=== PATIENT | male | born 1975 | race African-American/Black ===

== ENCOUNTER 2018-10-09 22:31 | Observation (INO) | payer BC, OTHER ==
[2018-10-09] MEDS ORDERED: ASPIRIN 81 MG CHEWABLE TABLET ONE (23:04)
[2018-10-09] MEDS ORDERED: NA CHLORIDE 0.9% 1,000 ML ONE (23:04)
[2018-10-09 23:20] LABS: Protime INR 1.03
[2018-10-09 23:28] LABS: Absolute Lymphocytes (CBC) 2.5 K/uL (0.7-4.9); Absolute Monocytes 0.3 K/uL (0.1-1.3); Absolute Neutrophil 3.1 K/uL (1.8-8.0); Basophils % 0.8 % (0-1.3); Eosinophils % 2.1 % (0-4.4); Hematocrit 39.2 % (39.6-49.0); Lymphocytes % 41.5 % (15.3-44.8); MPV 8.7 fL (7.6-11.3); Monocytes % 5.7 % (3.3-12.3); RBC Red Blood Cell Count 4.12 M/uL (4.33-5.43)
--- NOTE | 2018-10-09 23:29 | ER ---
Nurse's Notes [facility] Name: Valeriano Ríos Age: 43 yrs Sex: Male : 1975 Arrival Date: 10/09/2018 Time: 22:32 Bed 4 Private MD: Alejandro Turner Diagnosis: Chest pain, unspecified-hx cad, mi and stent;Essential (primary) hypertension;Hypokalemia Presentation: 10/09 22:45 Presenting complaint: Patient states: I was walking around [place] and started having tl2 crushing chest pain. Does not radiate. Pt reports having history of a heart attack in 2011. Pt denies nausea/vomiting or shortness of breath. Pt states the pain seems to be getting better but it is still there. Transition of care: patient was not received from another setting of care. Onset of symptoms was October 09, 2018 at 22:20. Risk Assessment: Do you want to hurt yourself or someone else? Patient reports no desire to harm self or others. Initial Sepsis Screen: Does the patient meet any 2 criteria? No. Patient's initial sepsis screen is negative. Does the patient have a suspected source of infection? No. Patient's initial sepsis screen is negative. Care prior to arrival: None. 22:45 Method Of Arrival: Ambulatory tl2 22:45 Acuity: BENEDICT 3 tl2 Triage Assessment: 22:48 General: Appears in no apparent distress. uncomfortable, Behavior is calm, cooperative, tl2 appropriate for age. Pain: Complains of pain in anterior aspect of left upper chest and mid-sternal area Pain does not radiate. Pain currently is 7 out of 10 on a pain scale. Quality of pain is described as crushing. Neuro: Level of Consciousness is awake, alert, obeys commands, Oriented to person, place, time, situation. Cardiovascular: Rhythm is sinus rhythm Chest pain is described as diffuse, quality is crushing, is located in anterior chest wall began 30 minutes prior to arrival episodes are continuous. Respiratory: Airway is patent Respiratory effort is even, unlabored, Respiratory pattern is regular, symmetrical, Denies shortness of breath. GI: Patient currently denies nausea, vomiting. Derm: Skin is pink, warm \T\ dry. Historical: - Allergies: 22:48 Lisinopril; tl2 - Home Meds: 22:48 Plavix 75 mg Oral tab 1 tab once daily [Active]; Lipitor Oral [Active]; tl2 losartan-hydrochlorothiazide oral oral [Active]; aspirin 81 mg Oral chew 1 tab once daily [Active]; - PMHx: 22:48 Myocardial infarction; tl2 - PSHx: 22:48 Heart stents; tl2 - Immunization history:: Adult Immunizations up to date. - Social history:: Smoking status: Patient/guardian denies using tobacco. - Ebola Screening: : No symptoms or risks identified at this time. - Family history:: not pertinent. Screenin:50 Abuse screen: Denies threats or abuse. Nutritional screening: No deficits noted. tl2 Tuberculosis screening: No symptoms or risk factors identified. Fall Risk None identified. Assessment: 22:50 General: see triage assessment. tl2 22:52 Pain: Pain began 30 min ago. tl2 10/10 00:22 Reassessment: Patient appears in no apparent distress at this time. Patient and/or tl2 family updated on plan of care and expected duration. Pain level reassessed. Patient is alert, oriented x 3, equal unlabored respirations, skin warm/dry/pink. Vital Signs: 02 22:48 BP 164 / 97; Pulse 71; Resp 18; Pulse Ox 100% on R/A; Weight 79.38 kg; Height 5 ft. 9 tl2 in. (175.26 cm); Pain 7/10; 10/10 00:21 BP 136 / 95; Pulse 72; Resp 18; Pulse Ox 100% on R/A; tl2 02 22:48 Body Mass Index 25.84 (79.38 kg, 175.26 cm) tl2 Vitals: 02 22:50 Cardiac Rhythm Assessment Sinus rhythm. tl2 ED Course: 22:32 Patient arrived in ED. am2 22:32 Alejandro Turner MD is Private Physician. am2 22:46 Triage completed. tl2 22:47 Prudencio Concepcion MD is Attending Physician. lucia 22:48 Arm band placed on right wrist. tl2 22:50 Patient has correct armband on for positive identification. Placed in gown. Bed in low tl2 position. Call light in reach. Side rails up X 1. hall monitor on. Pulse ox on. NIBP on. 22:50 Inserted saline lock: 20 gauge in right antecubital area, using aseptic technique. tl2 Blood collected. placed by CARTER Gunderson. Patient maintains SpO2 saturation greater than 95% on room air. 23:03 XRAY Chest (1 view) In Process Unspecified. EDNH 23:27 Susana Gonzales MD is Hospitalizing Provider. [facility] 10/10 00:20 Cathleen Menard RN is Primary Nurse. tl2 01:16 No provider procedures requiring assistance completed. Patient admitted, IV remains in tl1 place. Administered Medications: 10/09 23:00 Drug: Aspirin 162 mg Route: PO; tl2 10/10 00:19 Follow up: Response: No adverse reaction tl2 10/09 23:01 Drug: NS 0.9% 1000 ml Route: IV; Rate: 125 ml/hr; Site: left antecubital; tl2 10/10 01:01 Follow up: IV Status: Infusion continued upon admission tl1 10/09 23:36 Drug: Lovenox 80 mg Route: Sub-Q; Site: abdomen; tl1 10/10 00:19 Follow up: Response: No adverse reaction tl2 10/09 23:37 Drug: Pepcid 20 mg Route: IVP; Infused Over: 2 mins; Site: right antecubital; tl1 10/10 00:20 Follow up: Response: No adverse reaction tl2 00:19 Drug: Potassium Effervescent Tablet 50 mEq Route: PO; tl2 01:01 Follow up: Response: No adverse reaction; No change in condition tl1 01:01 Drug: PlaVIX 75 mg Route: PO; tl1 01:17 Follow up: Response: No adverse reaction; No change in condition tl1 Outcome: 10/09 23:29 Decision to Hospitalize by Provider. [facility] 10/10 01:16 Admitted to Tele accompanied by nurse, via wheelchair, with chart. tl1 Condition: stable Instructed on the need for admit. 01:18 Patient left the ED. tl1 Signatures: Dispatcher [employer] EDMS Prudencio Concepcion MD MD cha Lasagna, Tonya RN RN tl1 Cathleen Menard RN RN tl2 Yuridia Ross
--- NOTE | 2018-10-09 23:30 | EDPHYS ---
Physician Documentation [facility] Name: Valeriano Ríos Age: 43 yrs Sex: Male : 1975 Arrival Date: 10/09/2018 Time: 22:32 Bed 4 Private MD: Alejandro Turner ED Physician Prudencio Concepcion HPI: 10/09 23:24 This 43 yrs old Black Male presents to ER via Ambulatory with complaints of Chest Pain lucia > 30 y/o. 23:24 The patient or guardian reports chest pain that is located primarily in the substernal lucia area, anterior chest wall. Onset: just prior to arrival. The pain does not radiate. Associated signs and symptoms: The patient has no apparent associated signs or symptoms. The chest pain is described as a heaviness, a pressure. Duration: The patient or guardian reports a single episode, that is still ongoing. Modifying factors: The symptoms are alleviated by nothing. the symptoms are aggravated by nothing. Severity of pain: At its worst the pain was moderate in the emergency department the pain has resolved and did so just prior to arrival. Historical: - Allergies: 22:48 Lisinopril; tl2 - Home Meds: 22:48 Plavix 75 mg Oral tab 1 tab once daily [Active]; Lipitor Oral [Active]; tl2 losartan-hydrochlorothiazide oral oral [Active]; aspirin 81 mg Oral chew 1 tab once daily [Active]; - PMHx: 22:48 Myocardial infarction; tl2 - PSHx: 22:48 Heart stents; tl2 - Immunization history:: Adult Immunizations up to date. - Social history:: Smoking status: Patient/guardian denies using tobacco. - Ebola Screening: : No symptoms or risks identified at this time. - Family history:: not pertinent. ROS: 23:24 Constitutional: Negative for fever, chills, and weight loss, Eyes: Negative for injury, lucia pain, redness, and discharge, ENT: Negative for injury, pain, and discharge, Neck: Negative for injury, pain, and swelling, Respiratory: Negative for shortness of breath, cough, wheezing, and pleuritic chest pain, Abdomen/GI: Negative for abdominal pain, nausea, vomiting, diarrhea, and constipation, Back: Negative for injury and pain, : Negative for injury, bleeding, discharge, and swelling, MS/Extremity: Negative for injury and deformity, Skin: Negative for injury, rash, and discoloration, Neuro: Negative for headache, weakness, numbness, tingling, and seizure, Psych: Negative for depression, anxiety, suicide ideation, homicidal ideation, and hallucinations, Allergy/Immunology: Negative for hives, rash, and allergies, Endocrine: Negative for neck swelling, polydipsia, polyuria, polyphagia, and marked weight changes, Hematologic/Lymphatic: Negative for swollen nodes, abnormal bleeding, and unusual bruising. 23:24 Cardiovascular: Positive for chest pain, of the chest. Exam: 23:24 Constitutional: This is a well developed, well nourished patient who is awake, alert, lucia and in no acute distress. Head/Face: Normocephalic, atraumatic. Eyes: Pupils equal round and reactive to light, extra-ocular motions intact. Lids and lashes normal. Conjunctiva and sclera are non-icteric and not injected. Cornea within normal limits. Periorbital areas with no swelling, redness, or edema. ENT: Nares patent. No nasal discharge, no septal abnormalities noted. Tympanic membranes are normal and external auditory canals are clear. Oropharynx with no redness, swelling, or masses, exudates, or evidence of obstruction, uvula midline. Mucous membranes moist. Neck: Trachea midline, no thyromegaly or masses palpated, and no cervical lymphadenopathy. Supple, full range of motion without nuchal rigidity, or vertebral point tenderness. No Meningismus. Chest/axilla: Normal chest wall appearance and motion. Nontender with no deformity. No lesions are appreciated. Cardiovascular: Regular rate and rhythm with a normal S1 and S2. No gallops, murmurs, or rubs. Normal PMI, no JVD. No pulse deficits. Respiratory: Lungs have equal breath sounds bilaterally, clear to auscultation and percussion. No rales, rhonchi or wheezes noted. No increased work of breathing, no retractions or nasal flaring. Abdomen/GI: Soft, non-tender, with normal bowel sounds. No distension or tympany. No guarding or rebound. No evidence of tenderness throughout. Back: No spinal tenderness. No costovertebral tenderness. Full range of motion. Male : Normal genitalia with no discharge or lesions. Skin: Warm, dry with normal turgor. Normal color with no rashes, no lesions, and no evidence of cellulitis. MS/ Extremity: Pulses equal, no cyanosis. Neurovascular intact. Full, normal range of motion. Neuro: Awake and alert, GCS 15, oriented to person, place, time, and situation. Cranial nerves II-XII grossly intact. Motor strength 5/5 in all extremities. Sensory grossly intact. Cerebellar exam normal. Normal gait. Psych: Awake, alert, with orientation to person, place and time. Behavior, mood, and affect are within normal limits. 23:24 Musculoskeletal/extremity: Extremities: all appear grossly normal, with no appreciated pain with palpation, grossly normal except: ROM: intact in all extremities, full active range of motion, full passive range of motion, Circulation is intact in all extremities. Compartment Syndrome exam of affected extremity: is normal. DVT Exam: No signs of deep vein thrombosis. no pain, no swelling, no tenderness, negative Homans' sign noted on exam, no appreciated bluish discoloration, no erythema, no increased warmth. Vital Signs: 22:48 BP 164 / 97; Pulse 71; Resp 18; Pulse Ox 100% on R/A; Weight 79.38 kg; Height 5 ft. 9 tl2 in. (175.26 cm); Pain 7/10; 10/10 00:21 BP 136 / 95; Pulse 72; Resp 18; Pulse Ox 100% on R/A; tl2 10/09 22:48 Body Mass Index 25.84 (79.38 kg, 175.26 cm) tl2 MDM: 10/09 22:47 Patient medically screened. [facility] 23:29 Data reviewed: vital signs, nurses notes, EMS record, lab test result(s), EKG, [facility] radiologic studies, plain films. 10/09 22:50 Order name: Basic Metabolic Panel; Complete Time: 00:16 [facility] 10/09 22:50 Order name: CBC with Diff; Complete Time: 00:16 [facility] 10/09 22:50 Order name: LFT's; Complete Time: 00:16 [facility] 10/09 22:50 Order name: Magnesium; Complete Time: 00:16 [facility] 10/09 22:50 Order name: NT PRO-BNP; Complete Time: 00:16 [facility] 10/09 22:50 Order name: PT-INR; Complete Time: 00:16 [facility] 10/09 22:50 Order name: Troponin (emerg Dept Use Only); Complete Time: 00:16 [facility] 10/09 22:50 Order name: XRAY Chest (1 view) [facility] 10/09 22:50 Order name: Lipase; Complete Time: 00:16 [facility] 10/09 22:50 Order name: Urine Culture [facility] 10/09 22:50 Order name: EKG; Complete Time: 22:51 [facility] 10/09 22:50 Order name: Cardiac monitoring; Complete Time: 22:53 [facility] 10/09 22:50 Order name: EKG - Nurse/Tech; Complete Time: 22:53 [facility] 10/09 22:50 Order name: IV Saline Lock; Complete Time: 22:53 [facility] 10/09 22:50 Order name: Labs collected and sent; Complete Time: 22:53 [facility] 10/09 22:50 Order name: O2 Per Protocol; Complete Time: 22:53 [facility] 10/09 22:50 Order name: O2 Sat Monitoring; Complete Time: 22:53 [facility] 10/09 22:50 Order name: Oxygen; Complete Time: 22:54 [facility] 10/10 00:17 Order name: PO challenge: juice; Complete Time: 01:01 [facility] Administered Medications: 23:00 Drug: Aspirin 162 mg Route: PO; tl2 10/10 00:19 Follow up: Response: No adverse reaction tl2 10/09 23:01 Drug: NS 0.9% 1000 ml Route: IV; Rate: 125 ml/hr; Site: left antecubital; tl2 10/10 01:01 Follow up: IV Status: Infusion continued upon admission tl1 10/09 23:36 Drug: Lovenox 80 mg Route: Sub-Q; Site: abdomen; tl1 10/10 00:19 Follow up: Response: No adverse reaction tl2 10/09 23:37 Drug: Pepcid 20 mg Route: IVP; Infused Over: 2 mins; Site: right antecubital; tl1 10/10 00:20 Follow up: Response: No adverse reaction tl2 00:19 Drug: Potassium Effervescent Tablet 50 mEq Route: PO; tl2 01:01 Follow up: Response: No adverse reaction; No change in condition tl1 01:01 Drug: PlaVIX 75 mg Route: PO; tl1 01:17 Follow up: Response: No adverse reaction; No change in condition tl1 Disposition: 10/09/18 23:29 Hospitalization ordered by Susana Gonzales for Observation. Preliminary diagnosis are Chest pain, unspecified - hx cad, mi and stent, Essential (primary) hypertension, Hypokalemia. - Bed requested for Telemetry/MedSurg (observation). - Status is Observation. tl1 - Condition is Stable. - Problem is new. - Symptoms have improved. UTI on Admission? No Signatures: Dispatcher [employer] EDMS Tori Balderrama RN RN mw Anderson, Corey, MD MD cha Lasagna, Tonya RN RN tl1 Cathleen Menard RN RN tl2 Corrections: (The following items were deleted from the chart) 00:18 10/09 23:29 Hospitalization Ordered by Susana Gonzales MD for Observation. Preliminary [facility] diagnosis is Chest pain, unspecified - hx cad, mi and stent; Essential (primary) hypertension. Bed requested for Telemetry/MedSurg (observation). Status is Observation. Condition is Stable. Problem is new. Symptoms have improved. UTI on Admission? No. lucia 10/10 00:19 00:18 10/09/2018 23:29 Hospitalization Ordered by Susana Gonzales MD for Observation. Preliminary diagnosis is Chest pain, unspecified - hx cad, mi and stent; Essential (primary) hypertension; Hypokalemia. Bed requested for Telemetry/MedSurg (observation). Status is Observation. Condition is Stable. Problem is new. Symptoms have improved. UTI on Admission? No. lucia :18 00:19 10/09/2018 23:29 Hospitalization Ordered by Susana Gonzales MD for Observation. tl1 Preliminary diagnosis is Chest pain, unspecified - hx cad, mi and stent; Essential (primary) hypertension; Hypokalemia. Bed requested for Telemetry/MedSurg (observation). Status is Observation. Condition is Stable. Problem is new. Symptoms have improved. UTI on Admission? No. zoraida
[2018-10-09 23:39] LABS: ALT/SGPT 39 U/L (12-78); AST/SGOT 42 U/L (15-37); Albumin 4.2 g/dL (3.4-5.0); Alkaline Phosphatase 80 U/L (45-117); BUN Blood Urea Nitrogen 17 mg/dL (7-18); Bicarbonate 28 mmol/L (21-32); Bilirubin Direct 0.2 mg/dL (0-0.2); Bilirubin Total 0.6 mg/dL (0.2-1.0); Glucose Level 136 mg/dL (74-106); Lipase 70 U/L (73-393); Magnesium 1.9 mg/dL (1.8-2.4); NT PRO-BNP 63 pg/mL (<125); Protein, Total 7.6 g/dL (6.4-8.2); Sodium Level 142 mmol/L (136-145); Troponin (Emerg Dept Use Only) < 0.02 ng/mL (0.0-0.045)
[2018-10-09] MEDS ORDERED: ENOXAPARIN 80 MG/0.8 ML SQ ONE (23:42)
[2018-10-09] MEDS ORDERED: FAMOTIDINE 20 MG/2 ML VIAL IV ONE (23:42)
[2018-10-10] MEDS ORDERED: MORPHINE 4 MG/ML SYR IV PRN (00:06)
[2018-10-10] MEDS ORDERED: ACETAMINOPHEN 500 MG TAB PO PRN (00:06)
[2018-10-10] MEDS ORDERED: ALPRAZOLAM 0.25 MG TABLET PO PRN (00:06)
[2018-10-10] MEDS ORDERED: POTASSIUM 25 MEQ EFFERV TAB ONE (00:28)
[2018-10-10] MEDS ORDERED: CLOPIDOGREL 75 MG TABLET ONE (01:09)
[2018-10-10 01:46] VITALS: BMI 25.8
--- NOTE | 2018-10-10 07:44 | EKG ---
Test Date: 2018-10-09 Test Time: 22:38:13 [employer] Lifeguard: JARON MEASUREMENT RESULTS: Intervals: Rate: 69 MT: 144 QRSD: 82 QT: 380 QTc: 407 [place]: P: 74 MT: 144 QRS: 64 T: 84 INTERPRETIVE STATEMENTS: Sinus rhythm with frequent premature atrial complexes with aberrancy Nonspecific T wave abnormality Abnormal ECG Compared to ECG 01/22/2013 08:32:19 Atrial premature complex(es) now present T-wave abnormality now present Right-axis deviation no longer present Electronically Signed On 10-10-18 07:43:43 GLASS CARRIER by Rizwan Ghosh
[2018-10-10 08:21] VITALS: BP 140/98
[2018-10-10 08:48] VITALS: TEMP 97.9
[2018-10-10] MEDS ORDERED: ENOXAPARIN 40 MG/0.4 ML SQ SCH (09:00)
[2018-10-10] MEDS ORDERED: METOPROLOL TAR 50 MG TAB PO SCH (09:00)
[2018-10-10] MEDS ORDERED: ASPIRIN EC 81 MG TAB PO SCH (09:00)
[2018-10-10] MEDS ORDERED: MORPHINE 2 MG/ML SYR IV PRN (09:07)
--- NOTE | 2018-10-10 10:14 | P.HP ---
Certification for Inpatient Patient admitted to: Inpatient With expected LOS: >2 Midnights Practitioner: I am a practitioner with admitting privileges, knowledge of patient current condition, hospital course, and medical plan of care. Services: Services provided to patient in accordance with Admission requirements found in Title 42 Section 412.3 of the Code of Federal Regulations Patient History Date of Service: 10/10/18 Reason for admission: Chest pain rule out acute coronary syndrome History of Present Illness: Patient is a 43-year-old gentleman who came to the hospital with chest discomfort. Patient has a history of coronary artery disease and apparently was found to have an PR about 2 years ago. He was seen by Dr. Mccoy and I believe he had a stent placed. He has been doing well since that time. He has been exercising and eating right. He has a history of hypertension and hyperlipidemia as well as a strong family history. He was having chest pain, initially, but it resolved. He will be admitted to the hospital to be ruled out for acute coronary syndrome. No EKG changes. Allergies lisinopril Adverse Reaction (Verified 10/10/18 01:33) Anaphylaxis Home Medications: Aspirin [Marito Chewable] 81 mg PO DAILY 01/22/13 Atorvastatin Calcium [Lipitor*] 80 mg PO BEDTIME 01/22/13 Cholecalciferol (Vitamin D3) [Vitamin D-3] 2,000 unit PO DAILY 01/22/13 Clopidogrel Bisulfate [Clopidogrel] 75 mg PO DAILY 01/22/13 Losartan Potassium [Cozaar] 50 mg PO DAILY 01/22/13 - Past Medical/Surgical History Diabetic: No -: HTN -: HLD -: Heart Disease -: stent placed 08/2012 - Family History Father Family History: Reviewed- Non-Contributory - Social History Smoking Status: Never smoker Alcohol use: No CD- Drugs: No Caffeine use: Yes Place of Residence: Home Review of Systems 10-point ROS is otherwise unremarkable Physical Examination - Vital Signs Temperature: 97.9 F Blood Pressure: 140/98 Pulse: 61 Respirations: 20 Pulse Ox (%): 98 - Physical Exam General: Alert, In no apparent distress, Oriented x3 HEENT: Atraumatic, PERRLA, Mucous membr. moist/pink, EOMI, Sclerae nonicteric Neck: Supple, 2+ carotid pulse no bruit, No LAD, Without JVD or thyroid abnormality Respiratory: Clear to auscultation bilaterally, Normal air movement Cardiovascular: Regular rate/rhythm, Normal S1 S2 Gastrointestinal: Normal bowel sounds, Soft and benign, Non-distended, No tenderness Musculoskeletal: No tenderness Integumentary: No rashes Neurological: Normal gait, Normal speech, Normal strength at 5/5 x4 extr, Normal tone, Normal affect Lymphatics: No axilla or inguinal lymphadenopathy - Studies Laboratory Data (last 24 hrs) 10/09/18 22:50: PT 12.1, INR 1.03 10/09/18 22:50: WBC 6.1, Hgb 13.2 L, Hct 39.2 L, Plt Count 245 10/09/18 22:50: Sodium 142, Potassium 3.0 L, BUN 17, Creatinine 1.48 H, Glucose 136 H, Magnesium 1.9, Total Bilirubin 0.6, AST 42 H, ALT 39, Alkaline Phosphatase 80, Lipase 70 L Assessment & Plan - Problems (Diagnosis) (1) Chest pain, rule out acute myocardial infarction Current Visit: Yes Status: Acute (2) History of coronary artery disease Current Visit: Yes Status: Acute (3) History of coronary artery stent placement Current Visit: Yes Status: Acute - Plan 1. Serial troponins and EKG 2. Cardiology consultation 3. Echocardiogram Further testing pending cardiology evaluation 4. Anti-platelet therapy, anti coagulation, beta-savannah, statin, and O2 as needed 5. IV morphine for pain 6. Nitro p.r.n. Discharge Plan: Home Plan to discharge in: 48 Hours - Advance Directives Does patient have a Living Will: No Does patient have a Durable POA for Healthcare: No - Code Status/Comfort Care Code Status Assessed: Yes Code Status: Full Code Critical Care: No Time Spent Managing PTS Care (In Minutes): 55
--- NOTE | 2018-10-10 10:23 | CON ---
History Of Present Illness: Mr. Ríos is 43. He came to the hospital because of chest pain. When he was 33, he had an acute MT and received a stent. It was done at [facility]. Dr. Maxwell ewing did it. Since then, he has followed up with Dr. Mccoy. In August 2018, just a little more th an a month ago, he had a cardiac cath and no interventions were done. He was told everything looked good. He has not been having any chest pain until yesterday. It was about 10 in the evening. The c hest pain lasted roughly an hour. By the time he got to the emergency room, it was resolved. His EK G showed premature atrial complexes. No other abnormality. His troponin was normal then, but some 8 or 9 hours later, the troponin has gone from 0.02 to 2.04. He is asymptomatic at this time. Mr. Sebastian day does not have diabetes or hypertension. He takes atorvastatin 80, Plavix 75, aspirin 81, losartan 50, and vitamin D3. He is intolerant of lisinopril. He uses no tobacco. He did smoke at the time of his MT. Physical Examination: General: He is 5 feet and 9 inches, 175 pounds. HEENT: Normal. Lungs: Clear. Heart: Within normal limits. Abdomen: Soft. Extremities: Normal. No cyanosis, clubbing, or edema. Impression: The patient has had a non-ST elevation myocardial infarction. He should probably underg o another cardiac cath. He may need another stent. It is possible that was all related to some kind of coronary spasm or a tiny plaque disruption in a small vessel, but I think a cardiac cath is indicated before he is discharged for outpatient care. ARABELLA Voice ID: [id number] Report ID: [id number]
[2018-10-10 10:56] VITALS: O2SAT 98
[2018-10-10] MEDS ORDERED: ENOXAPARIN 80 MG/0.8 ML SQ SCH (11:30)
[2018-10-10] MEDS ORDERED: ATORVASTATIN 20 MG TAB PO SCH (21:00)
--- NOTE | 2018-10-12 10:21 | RAD REPORT ---
EXAM DESCRIPTION: RAD - Chest Single View - 10/09/2018 11:01 pm CLINICAL HISTORY: CHEST PAIN. TECHNIQUE: Portable AP chest x-ray. COMPARISON: None. FINDINGS: Hear size: Normal. Lungs: No acute consolidation. Pleura: No pleural effusion. No pneumothorax. Mediastinum and yamilet: Unremarkable. Skeletal: Unremarkable. Support tubings: None. IMPRESSION: 1. No active disease in the chest. Electronically signed by: Ren Bryson MD 10/09/2018 11:55 PM MACHINE HOOP MAKER HELPER Due to temporary technical issues with the PACS/Fluency reporting system, reports are being signed by the in house radiologist as a courtesy to ensure prompt reporting. The interpreting radiologist is f ully responsible for the content of the report.
== END 2018-10-10 12:15 | disposition short-term general hospital (02) ==
LOC: ER 22:31 → ERHOLD 10-10 00:14 → 4TH 10-10 01:04
PROVIDERS: ADMIT Hospitalist; ATTEND Hospitalist
DX: R07.9 Chest pain, unspecified (principal); I25.10 Atherosclerotic heart disease of native coronary artery without angina pectoris; I10 Essential (primary) hypertension; E78.5 Hyperlipidemia, unspecified; Z79.82 Long term (current) use of aspirin; Z95.5 Presence of coronary angioplasty implant and graft; I25.2 Old myocardial infarction; Z87.891 Personal history of nicotine dependence
CPT/HCPCS: 36415; 71045; 80048; 80076; 83690; 83735; 83880; 84484; 85025; 85610; 93005; 96361; 96372; 96374; 99285; G0378; J1650; J7030